=== PATIENT | male | born 1990 | race African-American/Black ===

== ENCOUNTER 2016-11-30 15:11 | Inpatient (IN) | payer OTHER ==
[~2016-11-30] VITALS: Ht 167.6 cm; Wt 57.5 kg
[2016-11-30 15:17] VITALS: BP 159/100; PULSE 66; RESP 16; TEMP 98.7; O2SAT 99
--- NOTE | 2016-11-30 15:19 | PD ---
Physical Exam Date Seen by Provider: Nov 30, 2016 Time Seen by Provider: 15:17 Narrative 26 YOBM C/O ABD PAIN WORSE RLQ. POSSIBLE APPENDICITIS. PAIN 4-5/10 VS REVIEWED WAITING FOR BED PLACEMENT MDM Supervised Visit with JANICE: No Scripts No Active Prescriptions or Reported Meds Memo Brunner Nov 30, 2016 15:19
[2016-11-30] MEDS ORDERED: SODIUM CHLOR 0.9% 1000 ML INJ 1,000 ML IV SCH (17:59)
--- NOTE | 2016-11-30 17:59 | PD ---
HPI Chief Complaint: Abdominal Pain Time Seen by Provider: 17:59 Travel History International Travel<30 days: No Contact w/Intl Traveler<30days: No Traveled to known affect area: No History of Present Illness HPI 26-year-old male with no significant medical history presents to the emergency department for evaluation a right lower abdominal pain. Patient states 2 days ago he began having abdominal cramping inferior to his umbilicus. It was cramping in nature. It has since migrated to the right lower quadrant. He states it is more painful with walking or movement. He states when he bends his knee up is very painful in the right lower quadrant. It is sharp at times. At rest 4/10. He has had mild nausea without vomiting. No bowel or bladder changes. He has felt chilled without definite fever. He has no other symptoms to report this time. [facility] Past Medical History Medical History: Denies Significant Hx Social History Alcohol Use: Yes (OCCASIONALLY) Tobacco Use: Yes (< 1 PPD) Substance Use: No Allergies-Medications (Allergen,Severity, Reaction): Coded Allergies: No Known Allergies (Verified , 11/30/16) Reported Meds & Prescriptions Reported Meds & Active Scripts Active No Active Prescriptions or Reported Medications Review of Systems Except as stated in HPI: all other systems reviewed are Neg Physical Exam Narrative GENERAL: Well-nourished male patient, ambulatory and in no acute distress. SKIN: Focused skin assessment warm/dry. HEAD: Atraumatic. Normocephalic. EYES: Pupils equal and round. No scleral icterus. No injection or drainage. ENT: No nasal bleeding or discharge. Mucous membranes pink and moist. NECK: Trachea midline. No JVD. CARDIOVASCULAR: Regular rate and rhythm. No murmur appreciated. RESPIRATORY: No accessory muscle use. Clear to auscultation. Breath sounds equal bilaterally. GASTROINTESTINAL: Abdomen soft, distended. Tenderness over McBurney's point; mild guarding with RLQ outpatient. No rebound tenderness.. Hepatic and splenic margins not palpable. MUSCULOSKELETAL: No obvious deformities. No clubbing. No cyanosis. No edema. NEUROLOGICAL: Awake and alert. No obvious cranial nerve deficits. Motor grossly within normal limits. Normal speech. PSYCHIATRIC: Appropriate mood and affect; insight and judgment normal. Data Data Last Documented VS Vital Signs Date Time Temp Pulse Resp B/P Pulse Ox O2 Delivery O2 Flow Rate FiO2 11/30/16 22:34 53 16 120/83 97 Room Air 11/30/16 15:17 98.7 Orders Urinalysis - C+S If Indicated (11/30/16 17:13) Complete Blood Count With Diff (11/30/16 17:59) Comprehensive Metabolic Panel (11/30/16 17:59) Prothrombin Time / Inr (Pt) (11/30/16 17:59) Act Partial Throm Time (Ptt) (11/30/16 17:59) Ct Abd/Pel W Iv Contrast(Rout) (11/30/16 17:59) Iv Access Insert/Monitor (11/30/16 17:59) Ecg Monitoring (11/30/16 17:59) Oximetry (11/30/16 17:59) Morphine Inj (Morphine Inj) (11/30/16 18:00) Ondansetron Inj (Zofran Inj) (11/30/16 18:00) Sodium Chlor 0.9% 1000 Ml Inj (Ns 1000 M (11/30/16 17:59) Sodium Chloride 0.9% Flush (Ns Flush) (11/30/16 18:00) Sodium Chlor 0.9% 1000 Ml Inj (Ns 1000 M (11/30/16 20:00) Iohexol 350 Inj (Omnipaque 350 Inj) (11/30/16 20:15) Piperacil-Tazo 4.5 Gm Premix (Zosyn 4.5 (11/30/16 21:45) Morphine Inj (Morphine Inj) (11/30/16 21:45) Consult General Surgery (11/30/16 ) Admit Order (Ed Use Only) (11/30/16 22:39) Labs Laboratory Tests Test 11/30/16 11/30/16 17:30 18:40 Urine Color YELLOW Urine Turbidity CLEAR Urine pH 6.0 Urine Specific [place] 1.024 Urine Protein TRACE mg/dL Urine Glucose (UA) NEG mg/dL Urine Ketones 40 mg/dL Urine Occult Blood NEG Urine Nitrite NEG Urine Bilirubin NEG Urine Urobilinogen 8.0 MG/DL Urine Leukocyte Esterase NEG Urine RBC LESS THAN 1 /hpf Urine WBC 4 /hpf Urine Squamous Epithelial <1 /hpf Cells Urine Mucus MANY /lpf Microscopic Urinalysis Comment CULT NOT INDICATED White Blood Count 13.5 TH/MM3 Red Blood Count 5.48 MIL/MM3 Hemoglobin 14.9 GM/DL Hematocrit 44.6 % Mean Corpuscular Volume 81.4 FL Mean Corpuscular Hemoglobin 27.1 PG Mean Corpuscular Hemoglobin 33.3 % Concent Red Cell Distribution Width 13.2 % Platelet Count 143 TH/MM3 Mean Platelet Volume 9.1 FL Neutrophils (%) (Auto) 85.2 % Lymphocytes (%) (Auto) 5.7 % Monocytes (%) (Auto) 9.0 % Eosinophils (%) (Auto) 0.0 % Basophils (%) (Auto) 0.1 % Neutrophils # (Auto) 11.5 TH/MM3 Lymphocytes # (Auto) 0.8 TH/MM3 Monocytes # (Auto) 1.2 TH/MM3 Eosinophils # (Auto) 0.0 TH/MM3 Basophils # (Auto) 0.0 TH/MM3 CBC Comment DIFF FINAL Differential Comment Prothrombin Time 12.0 SEC Prothromb Time International 1.1 RATIO Ratio Activated Partial 28.2 SEC Thromboplast Time Sodium Level 135 MEQ/L Potassium Level 3.3 MEQ/L Chloride Level 98 MEQ/L Carbon Dioxide Level 29.5 MEQ/L Anion Gap 8 MEQ/L Blood Urea Nitrogen 12 MG/DL Creatinine 1.17 MG/DL Estimat Glomerular Filtration 91 ML/MIN Rate Random Glucose 100 MG/DL Calcium Level 9.0 MG/DL Total Bilirubin 1.1 MG/DL Aspartate Amino Transf 7 U/L (AST/SGOT) Alanine Aminotransferase 12 U/L (ALT/SGPT) Alkaline Phosphatase 74 U/L Total Protein 7.3 GM/DL Albumin 3.7 GM/DL MDM Medical Decision Making Medical Screen Exam Complete: Yes Emergency Medical Condition: Yes Medical Record Reviewed: Yes Differential Diagnosis ACute appendicitis versus colitis versus diverticulitis versus gastroenteritis versus muscle strain versus spasm Narrative Course 26 year male presents to the Emergency department for evaluation right lower quadrant pain, initial onset 2 days ago inferior to his umbilicus that has now migrated. Patient appears without distress. His vital signs are stable. He is tender over McBurney's point. CBC is with moderate leukocytosis 13.5 with a neutrophilia of 11.5. CMP is with mild hypokalemia 3.3. Otherwise without acute concern. Urinalysis is with 40 ketones and many mucus. Culture is not indicated. CT imaging is ordered with IV and by mouth contrast. 2014 I'm contacted by CT and they have the patient in the room. I am inform the patient has not yet had his by mouth contrast and this order was placed by myself, however not initiated by the meteorological technician. Pt will have CT without PO contrast at this point. [address] Lui. Disposition will pend his judgment. Diagnosis Primary Impression: Right lower quadrant abdominal pain Scripts No Active Prescriptions or Reported Meds Condition: Stable Chandni Ross Nov 30, 2016 17:59
[2016-11-30] MEDS ORDERED: MORPHINE SULFATE 4 MG/ML INJ IV PUSH ONE ×2 (18:00→21:45)
[2016-11-30] MEDS ORDERED: SODIUM CHLORIDE 0.9% FLUSH 10 ML FLUSH IV FLUSH PRN ×2 (18:00→23:00)
[2016-11-30] MEDS ORDERED: ONDANSETRON HCL 4 MG/2 ML VIAL IVP ONE (18:00)
[2016-11-30 18:08] LABS: BLOOD, URINE NEG (NEG); COMMENT (UR) CULT NOT INDICATED; CULTURE IF INDICATED CULT NOT INDICATED; GLUCOSE,URINE NEG (NEG); KETONE, URINE 40 mg/dL (NEG); MUCUS URINE MANY /lpf (OCC); NITRITE,URINE NEG (NEG); SQUAMOUS EPITHELIAL CELL URINE <1 /hpf (0-5); URINE COLOR YELLOW (YELLW/STRAW)
[2016-11-30 18:43] VITALS: RESP 18; O2SAT 100
[2016-11-30 19:12] VITALS: BP 144/106; PULSE 54; RESP 18; O2SAT 97
[2016-11-30 19:15] LABS: AUTOMATED NEUTROPHIL # 11.5 TH/MM3 (1.8-7.7); BASOPHIL % 0.1 % (0.0-2.0); HEMATOCRIT 44.6 % (39.0-51.0); HEMO FLAGS DIFF FINAL; LYMPH % 5.7 % (9.0-44.0); LYMPHOCYTE # 0.8 TH/MM3 (1.0-4.8); MEAN CELL VOLUME 81.4 FL (80.0-100.0); MEAN CORPUSCULAR HEMOGLOBIN 27.1 PG (27.0-34.0); MEAN CORPUSCULAR HGB CONC 33.3 % (32.0-36.0); NEUT % 85.2 % (16.0-70.0); PLATELET COUNT 143 TH/MM3 (150-450); RED BLOOD COUNT 5.48 MIL/MM3 (4.50-5.90); RED CELL DISTRIBUTION WIDTH 13.2 % (11.6-17.2); WHITE BLOOD COUNT 13.5 TH/MM3 (4.0-11.0)
[2016-11-30 19:31] LABS: APTT (PATIENT) 28.2 SEC (24.3-30.1); INTERNATIONAL NORMALIZED RATIO 1.1 RATIO
[2016-11-30 19:36] LABS: ANION GAP 8 MEQ/L (5-15); AST (GOT) 7 U/L (15-37); BICARBONATE 29.5 MEQ/L (21.0-32.0); BLOOD UREA NITROGEN 12 MG/DL (7-18); CHLORIDE 98 MEQ/L (98-107); GLOMERULAR FILTRATION RATE 91 ML/MIN (>89); POTASSIUM 3.3 MEQ/L (3.5-5.1); SODIUM (NA) 135 MEQ/L (136-145)
[2016-11-30 19:40] LABS: ALKALINE PHOSPHATASE 74 U/L (45-117); ALT (GPT) 12 U/L (12-78); TOTAL BILIRUBIN ADULT 1.1 MG/DL (0.2-1.0)
[2016-11-30] MEDS ORDERED: SODIUM CHLOR 0.9% 1000 ML INJ 1,000 ML IV ONE (20:00)
[2016-11-30] MEDS ORDERED: IOHEXOL 350 MG/ML 10 ML VIAL (for RAD DIAG) IV ONE (20:15)
--- NOTE | 2016-11-30 21:27 | RADRPT ---
EXAM DATE/TIME: 11/30/2016 20:11 [place] COMPARISON: No previous studies available for comparison. INDICATIONS : Right side abdominal pain. IV CONTRAST: 100 cc Omnipaque 350 (iohexol) IV ORAL CONTRAST: No oral contrast ingested. RADIATION DOSE: 4.70 CTDIvol (mGy) MEDICAL HISTORY : None SURGICAL HISTORY : None. ENCOUNTER: Initial ACUITY: 3 days PAIN SCALE: 8/10 LOCATION: Right abdomen TECHNIQUE: Volumetric scanning of the abdomen and pelvis was performed. Using automated exposure control and ad justment of the mA and/or kV according to patient size, radiation dose was kept as low as reasonably achievable to obtain optimal diagnostic quality images. DICOM format image data is available electro nically for review and comparison. FINDINGS: Lung bases are clear. There is an inflammatory process in the right lower quadrant which is associated with mural thickenin g of the proximal right colon. I cannot definitively identify the appendix. See discussion below. Small cyst in the dome of the liver. Mild periportal edema in the liver. Spleen, adrenals and pancrea s unremarkable. Small right renal cyst. No hydronephrosis. Left kidney unremarkable. No free air. Bladder unremarkable. No acute bony findings. CONCLUSION: 1. Abdominal inflammatory or edematous changes in the right lower quadrant characterized by some flui d in the paracolic gutter and adjacent mural thickening of large bowel. It is unclear if this is a pr oximal colitis/typhlitis or appendicitis. I believe appendicitis is less likely as the appendix may b e visualized posteriorly extending off the cecal region.. No free air. There is also small amount dinora e fluid in the pelvis. Memo Stockton MD on November 30, 2016 at 21:18 Board Certified Radiologist. This report was verified electronically.
--- NOTE | 2016-11-30 21:40 | PD ---
Data Data Last Documented VS Vital Signs Date Time Temp Pulse Resp B/P Pulse Ox O2 Delivery O2 Flow Rate FiO2 11/30/16 22:34 53 16 120/83 97 Room Air 11/30/16 15:17 98.7 Orders Urinalysis - C+S If Indicated (11/30/16 17:13) Complete Blood Count With Diff (11/30/16 17:59) Comprehensive Metabolic Panel (11/30/16 17:59) Prothrombin Time / Inr (Pt) (11/30/16 17:59) Act Partial Throm Time (Ptt) (11/30/16 17:59) Ct Abd/Pel W Iv Contrast(Rout) (11/30/16 17:59) Iv Access Insert/Monitor (11/30/16 17:59) Ecg Monitoring (11/30/16 17:59) Oximetry (11/30/16 17:59) Morphine Inj (Morphine Inj) (11/30/16 18:00) Ondansetron Inj (Zofran Inj) (11/30/16 18:00) Sodium Chlor 0.9% 1000 Ml Inj (Ns 1000 M (11/30/16 17:59) Sodium Chloride 0.9% Flush (Ns Flush) (11/30/16 18:00) Sodium Chlor 0.9% 1000 Ml Inj (Ns 1000 M (11/30/16 20:00) Iohexol 350 Inj (Omnipaque 350 Inj) (11/30/16 20:15) Piperacil-Tazo 4.5 Gm Premix (Zosyn 4.5 (11/30/16 21:45) Morphine Inj (Morphine Inj) (11/30/16 21:45) Consult General Surgery (11/30/16 ) Admit Order (Ed Use Only) (11/30/16 22:39) Labs Laboratory Tests Test 11/30/16 11/30/16 17:30 18:40 Urine Color YELLOW Urine Turbidity CLEAR Urine pH 6.0 Urine Specific [place] 1.024 Urine Protein TRACE mg/dL Urine Glucose (UA) NEG mg/dL Urine Ketones 40 mg/dL Urine Occult Blood NEG Urine Nitrite NEG Urine Bilirubin NEG Urine Urobilinogen 8.0 MG/DL Urine Leukocyte Esterase NEG Urine RBC LESS THAN 1 /hpf Urine WBC 4 /hpf Urine Squamous Epithelial <1 /hpf Cells Urine Mucus MANY /lpf Microscopic Urinalysis Comment CULT NOT INDICATED White Blood Count 13.5 TH/MM3 Red Blood Count 5.48 MIL/MM3 Hemoglobin 14.9 GM/DL Hematocrit 44.6 % Mean Corpuscular Volume 81.4 FL Mean Corpuscular Hemoglobin 27.1 PG Mean Corpuscular Hemoglobin 33.3 % Concent Red Cell Distribution Width 13.2 % Platelet Count 143 TH/MM3 Mean Platelet Volume 9.1 FL Neutrophils (%) (Auto) 85.2 % Lymphocytes (%) (Auto) 5.7 % Monocytes (%) (Auto) 9.0 % Eosinophils (%) (Auto) 0.0 % Basophils (%) (Auto) 0.1 % Neutrophils # (Auto) 11.5 TH/MM3 Lymphocytes # (Auto) 0.8 TH/MM3 Monocytes # (Auto) 1.2 TH/MM3 Eosinophils # (Auto) 0.0 TH/MM3 Basophils # (Auto) 0.0 TH/MM3 CBC Comment DIFF FINAL Differential Comment Prothrombin Time 12.0 SEC Prothromb Time International 1.1 RATIO Ratio Activated Partial 28.2 SEC Thromboplast Time Sodium Level 135 MEQ/L Potassium Level 3.3 MEQ/L Chloride Level 98 MEQ/L Carbon Dioxide Level 29.5 MEQ/L Anion Gap 8 MEQ/L Blood Urea Nitrogen 12 MG/DL Creatinine 1.17 MG/DL Estimat Glomerular Filtration 91 ML/MIN Rate Random Glucose 100 MG/DL Calcium Level 9.0 MG/DL Total Bilirubin 1.1 MG/DL Aspartate Amino Transf 7 U/L (AST/SGOT) Alanine Aminotransferase 12 U/L (ALT/SGPT) Alkaline Phosphatase 74 U/L Total Protein 7.3 GM/DL Albumin 3.7 GM/DL [facility] Supervised Visit with JANICE: Yes Narrative Course I, Dr. Lui, have reviewed the advance practice practitioner's documentation and am in agreement, met with the patient face to face, made the diagnosis, and the medical decision making was done by me. See her note for further details. Briefly this a 26-year-old male who is here for evaluation of right lower quadrant abdominal pain since yesterday. Pain started periumbilical and migrated to his right lower quadrant. He has moderate to severe pain in this region that is worse with movement and palpation. He has also had subjective fevers and chills. No history of abdominal surgeries. On physical exam the patient has moderate right lower quadrant tenderness, periumbilical tenderness, and suprapubic tenderness without rebound or guarding. He does have a Rovsing sign on exam. Initial vital signs show heart rate 66, blood pressure 159/100, pulse ox 100% on room air, oral temp of 98.7F. CBC shows WBC 13.5, hemoglobin 14.9, hematocrit 44.6, platelets 143, neutrophils 85%. CMP is remarkable for potassium 3.3, otherwise unremarkable. CT abdomen pelvis: CONCLUSION: 1. Abdominal inflammatory or edematous changes in the right lower quadrant characterized by some fluid in the paracolic gutter and adjacent mural thickening of large bowel. It is unclear if this is a proximal colitis/ typhlitis or appendicitis. I believe appendicitis is less likely as the appendix may be visualized posteriorly extending off the cecal region.. No free air. There is also small amount free fluid in the pelvis. CT abd/pelvis was ordered with PO and IV contrast, however, for some reason PO contrast was not provided to the patient. Case discussed with on-call general surgeon Dr. Looney. Plan is to start the patient on IV antibiotics and admitted to the medical service. He will evaluate the patient tomorrow morning in consultation. Case discussed with [facility], hospitalist Dr. Graham. The patient will be admitted to their service under Dr. Lan 11:40 PM: I was informed by the call center that this is a [facility] patient and that I would need to speak with the [facility] general surgeon. At this time discussed that case with Dr. Gauthier who will evaluate the patient in the morning. Diagnosis Primary Impression: Right lower quadrant abdominal pain Admitting Information Admitting Physician Requests: Observation Scripts No Active Prescriptions or Reported Meds Grover Lui MD Nov 30, 2016 21:39
[2016-11-30] MEDS ORDERED: PIPERACIL-TAZO 4.5 GM PREMIX 100 ML IV ONE (21:45)
[2016-11-30 22:34] VITALS: BP 120/83; PULSE 53; RESP 16; O2SAT 97
[2016-11-30] MEDS ORDERED: SODIUM CHLOR 0.45% 1000 ML INJ 1,000 ML IV SCH (22:47)
--- NOTE | 2016-11-30 22:56 | HHI.HP ---
HPI Service CP Hospitalists Primary Care Physician No Primary Care Physician Admission Diagnosis RLQ abdominal pain r/o appenciditis Chief Complaint: abdominal pain for 2 days with chills Travel History International Travel<30 Days: No Contact w/Intl Traveler <30 Da: No Traveled to Known Affected Are: No History of Present Illness 26-year-old male with no significant medical history presents to the emergency department for evaluation a right lower abdominal pain. Patient states 2 days ago he began having abdominal cramping inferior to his umbilicus. He states his in migrated to the right lower quadrant. He states it is more painful with walking or movement. He states when he bends his knee up is very painful in the right lower quadrant. He has had mild nausea without vomiting. No bowel or bladder changes. He has felt chilled without fever. He has no other symptoms to report this time. CT in er suggests colitis inflammation possible appendix Review of Systems Constitutional: COMPLAINS OF: Chills Gastrointestinal: COMPLAINS OF: Abdominal pain, Nausea Past Family Social History Past Medical History none Past Surgical History none Reported Medications none Allergies: Coded Allergies: No Known Allergies (Verified , 11/30/16) Social History smokes 1/2 ppd occ etoh Physical Exam Vital Signs Vital Signs Date Time Temp Pulse Resp B/P Pulse Ox O2 Delivery O2 Flow Rate FiO2 11/30/16 22:34 53 16 120/83 97 Room Air 11/30/16 19:12 54 18 144/106 97 Room Air 11/30/16 18:43 18 100 Room Air 11/30/16 15:17 98.7 66 16 159/100 99 Physical Exam GENERAL: This is a well-nourished, well-developed patient, in no apparent distress. SKIN: No rashes, ecchymoses or lesions. Cool and dry. HEAD: Atraumatic. Normocephalic. No temporal or scalp tenderness. EYES: Pupils equal round and reactive. Extraocular motions intact. No scleral icterus. No injection or drainage. ENT: Nose without bleeding, purulent drainage or septal hematoma. Throat without erythema, tonsillar hypertrophy or exudate. Uvula midline. Airway patent. NECK: Trachea midline. No JVD or lymphadenopathy. Supple, nontender, no meningeal signs. CARDIOVASCULAR: Regular rate and rhythm without murmurs, gallops, or rubs. RESPIRATORY: Clear to auscultation. Breath sounds equal bilaterally. No wheezes , rales, or rhonchi. GASTROINTESTINAL: Abdomen tender rlq to mid abd no rebound MUSCULOSKELETAL: Extremities without clubbing, cyanosis, or edema. No joint tenderness, effusion, or edema noted. No calf tenderness. Negative Homans sign bilaterally. NEUROLOGICAL: Awake and alert. Cranial nerves II through XII intact. Motor and sensory grossly within normal limits. Five out of 5 muscle strength in all muscle groups. Normal speech. Laboratory Laboratory Tests Test 11/30/16 11/30/16 17:30 18:40 Urine Color YELLOW Urine Turbidity CLEAR Urine pH 6.0 Urine Specific [place] 1.024 Urine Protein TRACE Urine Glucose (UA) NEG Urine Ketones 40 Urine Occult Blood NEG Urine Nitrite NEG Urine Bilirubin NEG Urine Urobilinogen 8.0 Urine Leukocyte Esterase NEG Urine RBC LESS THAN 1 Urine WBC 4 Urine Squamous Epithelial <1 Cells Urine Mucus MANY Microscopic Urinalysis Comment CULT NOT INDICATED White Blood Count 13.5 Red Blood Count 5.48 Hemoglobin 14.9 Hematocrit 44.6 Mean Corpuscular Volume 81.4 Mean Corpuscular Hemoglobin 27.1 Mean Corpuscular Hemoglobin 33.3 Concent Red Cell Distribution Width 13.2 Platelet Count 143 Mean Platelet Volume 9.1 Neutrophils (%) (Auto) 85.2 Lymphocytes (%) (Auto) 5.7 Monocytes (%) (Auto) 9.0 Eosinophils (%) (Auto) 0.0 Basophils (%) (Auto) 0.1 Neutrophils # (Auto) 11.5 Lymphocytes # (Auto) 0.8 Monocytes # (Auto) 1.2 Eosinophils # (Auto) 0.0 Basophils # (Auto) 0.0 CBC Comment DIFF FINAL Differential Comment Prothrombin Time 12.0 Prothromb Time International 1.1 Ratio Activated Partial 28.2 Thromboplast Time Sodium Level 135 Potassium Level 3.3 Chloride Level 98 Carbon Dioxide Level 29.5 Anion Gap 8 Blood Urea Nitrogen 12 Creatinine 1.17 Estimat Glomerular Filtration 91 Rate Random Glucose 100 Calcium Level 9.0 Total Bilirubin 1.1 Aspartate Amino Transf 7 (AST/SGOT) Alanine Aminotransferase 12 (ALT/SGPT) Alkaline Phosphatase 74 Total Protein 7.3 Albumin 3.7 Result Diagram: 11/30/16 1840 11/30/16 1840 Imaging Last 24 hours Impressions Abdomen/Pelvis CT 11/30/16 2033 Signed Impressions: Service Date/Time: November 20:11 - CONCLUSION: 1. Abdominal inflammatory or edematous changes in the right lower quadrant characterized by some fluid in the paracolic gutter and adjacent mural thickening of large bowel. It is unclear if this is a proximal colitis/typhlitis or appendicitis. I believe appendicitis is less likely as the appendix may be visualized posteriorly extending off the cecal region.. No free air. There is also small amount free fluid in the pelvis. Memo Stockton MD Course in er started on zosyn iv fluids Assessment and Plan Problem List: (1) Right lower quadrant abdominal pain Status: Acute Plan: surgical evaluation start zosyn and follow up labs Assessment and Plan as above Code Status full Discussed Condition With patient Physician Certification 2 Midnight Certification Type: Admission for Inpatient Services Order for Inpatient Services The services are ordered in accordance with Medicare regulations or non- Medicare payer requirements, as applicable. In the case of services not specified as inpatient-only, they are appropriately provided as inpatient services in accordance with the 2-midnight benchmark. Estimated LOS (days): 2 2 days is the estimated time the patient will need to remain in the hospital, assuming treatment plan goals are met and no additional complications. Post-Hospital Plan: Home Chad Campoverde MD Nov 30, 2016 22:56
[2016-11-30] MEDS ORDERED: NALOXONE HCL 0.4 MG/ML AMP IV PRN (23:00)
[2016-11-30] MEDS ORDERED: LACTULOSE SYRUP 20 GM/30 ML CUP PO PRN (23:00)
[2016-11-30] MEDS ORDERED: BISACODYL 10 MG SUPP RECTAL PRN (23:00)
[2016-11-30] MEDS ORDERED: MAGNESIUM HYDROXIDE SUSP 30 ML CUP PO PRN (23:00)
[2016-11-30] MEDS ORDERED: SENNOSIDES 8.6 MG TAB PO PRN (23:00)
[2016-11-30] MEDS ORDERED: ONDANSETRON HCL 4 MG/2 ML VIAL IVP PRN (23:00)
[2016-11-30] MEDS: 1/2 NS + KCL 20 MEQ INJ 1,000 ML IV SCH (23:25)
[2016-11-30 23:27] VITALS: BP 136/73; PULSE 53; RESP 16; O2SAT 96
[2016-12-01] VITALS (7 sets, daily range): BP systolic 131–149; BP diastolic 77–86; PULSE 54–67; RESP 16–17; TEMP 96–100.4; O2SAT 97–99
--- NOTE | 2016-12-01 00:07 | MB ---
cc: LEAH LOONEY DATE OF CONSULTATION 11/30/2016 REASON FOR CONSULTATION Severe abdominal pain with abnormality in the right lower quadrant. HISTORY This is a 26-year-old gentleman who has had a 2-day history of some right lower quadrant pain. He had one episode of nausea and vomiting. He came to the emergency room. Dr. Lui called me to evaluate the patient because he has severe abdominal pain and he was very concerned on his clinical exam about acute appendicitis. The CT scan was done without contrast and there was some question if it was a appendicitis or possibly some other abnormality. PAST MEDICAL HISTORY Without any chronic medical problems. ALLERGIES He is not allergic to anything. MEDICATIONS He does not take any medications. SOCIAL HISTORY He is unemployed at this time. PHYSICAL EXAMINATION GENERAL: He is pleasant. He is lying in the position. He is able to move, however, holds his right lower quadrant. Points right at McBurney's point were he all his tenderness is. NECK: Neck is otherwise supple. CHEST: Clear. HEART: Regular rate. ABDOMEN: Thin, soft with exquisite tenderness to the right lower quadrant with rebound and guarding. Minimal tenderness to the left side but causes pain to right side with palpation. EXTREMITIES: Moves all extremities. No cyanosis or edema. NEUROLOGIC: He is alert, oriented without focal deficits. LABORATORY DATA White count 13, H&H 14 and 44. Chemistries essentially normal except for potassium at 3.3. Urinalysis clear. IMAGING STUDIES ct abd/pelvis When I reviewed it it looked like appendicitis to me. ASSESSMENT A 26-year-old -[place] gentleman with clinical signs and symptomatology of classic appendicitis. PLAN Laparoscopic appendectomy, possible open. This was explained to the patient in detail. We will notify the OR. Since it is almost midnight, we will plan account executive [employer] operative therapy. Leah Looney MD JDB/LUIS /11:27 PM /11:53 PM KAUSHAL
[2016-12-01] MEDS: MORPHINE SULFATE 4 MG/ML INJ IV PRN ×2 (00:40→04:07)
[2016-12-01] MEDS ORDERED: METOPROLOL TARTRATE 25 MG TAB PO PRN ×2 (01:00→13:45)
[2016-12-01] MEDS ORDERED: INSULIN HUMAN REGULAR 1,000 UNITS/10 ML VIAL SQ PRN ×2 (01:00→13:45)
[2016-12-01] MEDS ORDERED: SODIUM CHLORID 0.9% 500 ML IV PRN ×2 (01:00→13:45)
[2016-12-01] MEDS ORDERED: LACTATED RINGER'S 1000 ML IV PRN ×2 (01:00→13:45)
[2016-12-01] MEDS ORDERED: CHLORHEXIDINE GLUCONATE 2 % 1 PACK (2 CLOTHS) TOPICAL PRN ×2 (01:00→13:45)
[2016-12-01] MEDS ORDERED: POVIDONE IODINE 5% (ANTISEPSIS KIT) 4 APPLICATIONS EACH NARE PRN ×2 (01:00→13:45)
[2016-12-01] MEDS: PIPERACIL-TAZO 3.375 GM PREMIX 50 ML IV SCH ×4 (04:07→22:22)
[2016-12-01 07:53] LABS: AUTOMATED NEUTROPHIL # 11.8 TH/MM3 (1.8-7.7); BASOPHIL % 0.2 % (0.0-2.0); HEMATOCRIT 40.2 % (39.0-51.0); HEMO FLAGS DIFF FINAL; LYMPH % 7.1 % (9.0-44.0); MEAN CELL VOLUME 80.1 FL (80.0-100.0); MEAN CORPUSCULAR HEMOGLOBIN 27.1 PG (27.0-34.0); MEAN CORPUSCULAR HGB CONC 33.8 % (32.0-36.0); MONO % 11.3 % (0.0-8.0); NEUT % 81.4 % (16.0-70.0); PLATELET COUNT 127 TH/MM3 (150-450); RED BLOOD COUNT 5.02 MIL/MM3 (4.50-5.90); RED CELL DISTRIBUTION WIDTH 12.9 % (11.6-17.2); WHITE BLOOD COUNT 14.5 TH/MM3 (4.0-11.0)
[2016-12-01 08:22] LABS: ALKALINE PHOSPHATASE 68 U/L (45-117); ALT (GPT) 12 U/L (12-78); ANION GAP 5 MEQ/L (5-15); AST (GOT) 9 U/L (15-37); BLOOD UREA NITROGEN 10 MG/DL (7-18); CHLORIDE 104 MEQ/L (98-107); GLOMERULAR FILTRATION RATE 94 ML/MIN (>89); POTASSIUM 3.7 MEQ/L (3.5-5.1); SODIUM (NA) 137 MEQ/L (136-145); TOTAL BILIRUBIN ADULT 1.9 MG/DL (0.2-1.0)
[2016-12-01] MEDS: DOCUSATE SODIUM 50 MG/SENNA 8.6 MG TAB PO SCH ×2 (09:00→22:21)
[2016-12-01] MEDS ORDERED: PNEUMOCOCCAL POLYVALENT INJ 25 MCG/0.5 ML SYR IM ONE (09:00)
[2016-12-01] MEDS: SODIUM CHLORIDE 0.9% FLUSH 10 ML FLUSH IV FLUSH SCH ×3 (09:00→22:22)
[2016-12-01] MEDS: 1/2 NS + KCL 20 MEQ INJ 1,000 ML IV SCH (10:15)
[2016-12-01] MEDS ORDERED: ONDANSETRON HCL 4 MG/2 ML VIAL IV PUSH ONE (12:00)
[2016-12-01] MEDS ORDERED: PROPOFOL 200 MG/20 ML AMP IV ONE (12:00)
[2016-12-01] MEDS ORDERED: NEOSTIGMINE 3 MG/3 ML SYR IV ONE (12:00)
[2016-12-01] MEDS ORDERED: ACETAMINOPHEN 1000 MG/100 ML VIAL IV ONE (12:46)
[2016-12-01] MEDS ORDERED: MIDAZOLAM HCL 2 MG/2 ML VIAL ONE (12:46)
[2016-12-01] MEDS ORDERED: DEXAMETHASONE SOD PHOS 4 MG/ML VIAL ONE (12:46)
[2016-12-01] MEDS ORDERED: FAMOTIDINE 20 MG/2 ML VIAL ONE (12:46)
[2016-12-01] MEDS ORDERED: BUPIVACAINE HCL PF 0.25% 30 ML VIAL INFIL ONE (13:26)
[2016-12-01] MEDS ORDERED: MORPHINE SULFATE 8 MG/ML INJ IV PUSH PRN (14:00)
[2016-12-01] MEDS ORDERED: METOCLOPRAMIDE HCL 10 MG/2 ML VIAL IVS PRN (14:00)
[2016-12-01] MEDS ORDERED: MORPHINE SULFATE 4 MG/ML INJ IV PRN (14:00)
[2016-12-01] MEDS ORDERED: oxyCODONE/ACETAMINOPHEN 5 MG/325 MG TAB PO PRN (14:00)
[2016-12-01] MEDS ORDERED: Post-op Orders (for Pharmacy) MISC XX ONE (14:00)
[2016-12-01] MEDS: SODIUM CHLOR 0.9% 1000 ML INJ 1,000 ML IV SCH (14:00)
[2016-12-01] MEDS ORDERED: PIPERACIL-TAZO 3.375 GM PREMIX 50 ML IV SCH (14:00)
[2016-12-01] MEDS ORDERED: ONDANSETRON HCL 4 MG/2 ML VIAL IV PRN (14:00)
[2016-12-01] MEDS ORDERED: SODIUM CHLORIDE 0.9% FLUSH 10 ML FLUSH IV FLUSH PRN (14:00)
[2016-12-01] MEDS ORDERED: fentaNYL CITRATE 250 MCG/5 ML AMP ONE (14:25)
[2016-12-01] MEDS ORDERED: DO NOT ADM ANY ANTICOAGULANT DRUGS PRN (14:28)
[2016-12-02 00:55] VITALS: BP 154/90; PULSE 50; RESP 16; TEMP 98.7; O2SAT 97
[2016-12-02] MEDS: PIPERACIL-TAZO 3.375 GM PREMIX 50 ML IV SCH ×4 (04:16→21:11)
[2016-12-02] MEDS: oxyCODONE/ACETAMINOPHEN 5 MG/325 MG TAB PO PRN ×3 (04:20→22:36)
[2016-12-02 04:45] VITALS: BP 160/93; PULSE 52; RESP 16; TEMP 98.5; O2SAT 98
[2016-12-02 08:00] VITALS: BP 141/91; PULSE 48; RESP 18; TEMP 96.5; O2SAT 99
[2016-12-02 08:13] LABS: AUTOMATED NEUTROPHIL # 18.8 TH/MM3 (1.8-7.7); BASOPHIL % 0.2 % (0.0-2.0); HEMATOCRIT 40.6 % (39.0-51.0); HEMO FLAGS DIFF FINAL; LYMPH % 2.4 % (9.0-44.0); LYMPHOCYTE # 0.5 TH/MM3 (1.0-4.8); MEAN CELL VOLUME 80.1 FL (80.0-100.0); MEAN CORPUSCULAR HEMOGLOBIN 26.5 PG (27.0-34.0); MEAN CORPUSCULAR HGB CONC 33.1 % (32.0-36.0); MONO % 7.1 % (0.0-8.0); NEUT % 90.3 % (16.0-70.0); PLATELET COUNT 142 TH/MM3 (150-450); RED BLOOD COUNT 5.07 MIL/MM3 (4.50-5.90); RED CELL DISTRIBUTION WIDTH 12.7 % (11.6-17.2); WHITE BLOOD COUNT 20.8 TH/MM3 (4.0-11.0)
[2016-12-02 08:45] LABS: BICARBONATE 29.9 MEQ/L (21.0-32.0); POTASSIUM 4.2 MEQ/L (3.5-5.1)
[2016-12-02] MEDS ORDERED: PNEUMOCOCCAL POLYVALENT INJ 25 MCG/0.5 ML SYR IM ONE (09:00)
[2016-12-02] MEDS: DOCUSATE SODIUM 50 MG/SENNA 8.6 MG TAB PO SCH ×2 (09:10→21:11)
[2016-12-02] MEDS: SODIUM CHLORIDE 0.9% FLUSH 10 ML FLUSH IV FLUSH SCH ×4 (09:10→21:11)
[2016-12-02] MEDS: SODIUM CHLOR 0.9% 1000 ML INJ 1,000 ML IV SCH ×2 (09:13)
--- NOTE | 2016-12-02 09:31 | HHI.PR ---
Subjective Subjective Notes pt states pain better c/o incisional pain no N/V Objective Vitals/I&O Vital Signs Date Time Temp Pulse Resp B/P Pulse Ox O2 Delivery O2 Flow Rate FiO2 12/02/16 08:00 96.5 48 18 141/91 99 12/02/16 01:30 Room Air 12/01/16 21:50 4.00 Labs Laboratory Tests Test 12/02/16 07:46 White Blood Count 20.8 Red Blood Count 5.07 Hemoglobin 13.5 Hematocrit 40.6 Mean Corpuscular Volume 80.1 Mean Corpuscular Hemoglobin 26.5 Mean Corpuscular Hemoglobin 33.1 Concent Red Cell Distribution Width 12.7 Platelet Count 142 Mean Platelet Volume 8.9 Neutrophils (%) (Auto) 90.3 Lymphocytes (%) (Auto) 2.4 Monocytes (%) (Auto) 7.1 Eosinophils (%) (Auto) 0.0 Basophils (%) (Auto) 0.2 Neutrophils # (Auto) 18.8 Lymphocytes # (Auto) 0.5 Monocytes # (Auto) 1.5 Eosinophils # (Auto) 0.0 Basophils # (Auto) 0.0 CBC Comment DIFF FINAL Differential Comment Sodium Level 136 Potassium Level 4.2 Chloride Level 101 Carbon Dioxide Level 29.9 Anion Gap 5 Blood Urea Nitrogen 10 Creatinine 1.08 Estimat Glomerular Filtration 100 Rate Random Glucose 114 Calcium Level 8.3 Abdomen: Non-distended, Post-op tenderness Extremities: Perfused Wound Wound : Wound Location: Abdomen Appearance: Clean & Dry A/P Assessment and Plan S/P lap appy element of Colitis on Scope WBC increasing will get GI eval start full liquids oob ambulate Alessandro Gauthier MD Dec 02, 2016 09:31
[2016-12-02 12:00] VITALS: BP 135/89; PULSE 50; RESP 18; TEMP 96.4; O2SAT 99
--- NOTE | 2016-12-02 12:27 | HHI.PR ---
Subjective Remarks Pt overall feeling better today His previous abd pain that he presented with is resolved He has incisional pain from the surgery but this is stable and controlled Pt tolerating liquid diet +Flatus No BM Afebrile Objective Vitals Vital Signs Date Time Temp Pulse Resp B/P Pulse Ox O2 Delivery O2 Flow Rate FiO2 12/02/16 08:00 96.5 48 18 141/91 99 12/02/16 05:07 18 12/02/16 04:45 98.5 52 16 160/93 98 12/02/16 01:30 Room Air 12/02/16 00:55 98.7 50 16 154/90 97 12/01/16 21:50 98 Nasal Cannula 4.00 12/01/16 20:45 97.8 63 16 149/85 99 12/01/16 15:53 96.0 54 17 131/77 98 12/01/16 14:45 52 18 123/77 98 Room Air 12/01/16 14:30 58 19 128/80 100 Room Air 12/01/16 14:19 98.4 72 15 143/77 92 Nasal Cannula 4 12/01/16 12/01/16 12/02/16 15:00 23:00 07:00 Intake Total 600 ml 480 ml 240 ml Output Total 175 ml Balance 425 ml 480 ml 240 ml Intake Oral 0 ml 480 ml 240 ml Other 600 ml Output Other 175 ml # Voids 2 1 1 # Bowel Movements 0 0 Result Diagram: 12/02/16 0746 12/02/16 0746 Other Results Laboratory Tests Test 11/30/16 11/30/16 12/01/16 12/02/16 17:30 18:40 06:42 07:46 Urine Color YELLOW Urine Turbidity CLEAR Urine pH 6.0 Urine Specific [place] 1.024 Urine Protein TRACE mg/dL Urine Glucose (UA) NEG mg/dL Urine Ketones 40 mg/dL Urine Occult Blood NEG Urine Nitrite NEG Urine Bilirubin NEG Urine Urobilinogen 8.0 MG/DL Urine Leukocyte Esterase NEG Urine RBC LESS THAN 1 /hpf Urine WBC 4 /hpf Urine Squamous Epithelial <1 /hpf Cells Urine Mucus MANY /lpf Microscopic Urinalysis Comment CULT NOT INDICATED White Blood Count 13.5 TH/MM3 14.5 TH/MM3 20.8 TH/MM3 Red Blood Count 5.48 MIL/MM3 5.02 MIL/MM3 5.07 MIL/MM3 Hemoglobin 14.9 GM/DL 13.6 GM/DL 13.5 GM/DL Hematocrit 44.6 % 40.2 % 40.6 % Mean Corpuscular Volume 81.4 FL 80.1 FL 80.1 FL Mean Corpuscular Hemoglobin 27.1 PG 27.1 PG 26.5 PG Mean Corpuscular Hemoglobin 33.3 % 33.8 % 33.1 % Concent Red Cell Distribution Width 13.2 % 12.9 % 12.7 % Platelet Count 143 TH/MM3 127 TH/MM3 142 TH/MM3 Mean Platelet Volume 9.1 FL 9.5 FL 8.9 FL Neutrophils (%) (Auto) 85.2 % 81.4 % 90.3 % Lymphocytes (%) (Auto) 5.7 % 7.1 % 2.4 % Monocytes (%) (Auto) 9.0 % 11.3 % 7.1 % Eosinophils (%) (Auto) 0.0 % 0.0 % 0.0 % Basophils (%) (Auto) 0.1 % 0.2 % 0.2 % Neutrophils # (Auto) 11.5 TH/MM3 11.8 TH/MM3 18.8 TH/MM3 Lymphocytes # (Auto) 0.8 TH/MM3 1.0 TH/MM3 0.5 TH/MM3 Monocytes # (Auto) 1.2 TH/MM3 1.6 TH/MM3 1.5 TH/MM3 Eosinophils # (Auto) 0.0 TH/MM3 0.0 TH/MM3 0.0 TH/MM3 Basophils # (Auto) 0.0 TH/MM3 0.0 TH/MM3 0.0 TH/MM3 CBC Comment DIFF FINAL DIFF FINAL DIFF FINAL Differential Comment Prothrombin Time 12.0 SEC Prothromb Time International 1.1 RATIO Ratio Activated Partial 28.2 SEC Thromboplast Time Sodium Level 135 MEQ/L 137 MEQ/L 136 MEQ/L Potassium Level 3.3 MEQ/L 3.7 MEQ/L 4.2 MEQ/L Chloride Level 98 MEQ/L 104 MEQ/L 101 MEQ/L Carbon Dioxide Level 29.5 MEQ/L 28.0 MEQ/L 29.9 MEQ/L Anion Gap 8 MEQ/L 5 MEQ/L 5 MEQ/L Blood Urea Nitrogen 12 MG/DL 10 MG/DL 10 MG/DL Creatinine 1.17 MG/DL 1.14 MG/DL 1.08 MG/DL Estimat Glomerular Filtration 91 ML/MIN 94 ML/MIN 100 ML/MIN Rate Random Glucose 100 MG/DL 79 MG/DL 114 MG/DL Calcium Level 9.0 MG/DL 8.1 MG/DL 8.3 MG/DL Total Bilirubin 1.1 MG/DL 1.9 MG/DL Aspartate Amino Transf 7 U/L 9 U/L (AST/SGOT) Alanine Aminotransferase 12 U/L 12 U/L (ALT/SGPT) Alkaline Phosphatase 74 U/L 68 U/L Total Protein 7.3 GM/DL 6.3 GM/DL Albumin 3.7 GM/DL 3.1 GM/DL Imaging Last 24 hours Impressions Abdomen/Pelvis CT 11/30/16 5677 Signed Impressions: Service Date/Time: , November 30, 2016 20:11 - CONCLUSION: 1. Abdominal inflammatory or edematous changes in the right lower quadrant characterized by some fluid in the paracolic gutter and adjacent mural thickening of large bowel. It is unclear if this is a proximal colitis/typhlitis or appendicitis. I believe appendicitis is less likely as the appendix may be visualized posteriorly extending off the cecal region.. No free air. There is also small amount free fluid in the pelvis. Memo Stockton MD Objective Remarks General: NAD, AAOx3 Chest: CTA bilaterally Cardiac: Regular Abd: +BS, soft ND, incisions with steri strips in place, c/d/i Ext: No edema A/P Problem List: (1) Right lower quadrant abdominal pain Status: Acute Plan: - Pt is a 26 y/o without significant PMH who presented to the ED with RLQ abd pain x 3 days - CT Abd/pelvis (11/30) --> Abdominal inflammatory or edematous changes in the right lower quadrant characterized by some fluid in the paracolic gutter and adjacent mural thickening of large bowel. It is unclear if this is a proximal colitis/typhlitis or appendicitis. No free air. There is also small amount free fluid in the pelvis. - Pt was started on Zosyn - General Surgery consulted - Pt underwent laparoscopic appendectomy on 12/01/[address] Dominguez. Ther was reportedly an element of colitis noted during surgery and GI has been consulted. - Pts WBC count elevated today to 20.8 but pt afebrile. - Pt is planned for evaluation with colonoscopy for Sunday - Pt is still on Zosyn - Liquid diet per GS - Pain control PRN - DVT prophylaxis with Lovenox Assessment and Plan Patient examined. Assessment and plan formulated with Elisabeth Starr PA-C. I agree with the above. - case d/w Dr. Gallo (12/02/16) - continue zosyn - repeat CBC in AM - endoscopy with GI 12/04/16 Elisabeth Starr Dec 02, 2016 12:27 Maynor Lan DO Dec 02, 2016 15:29
--- NOTE | 2016-12-02 12:48 | PD.CONS ---
HPI History of Present Illness This is a very pleasant 26 year old male who presented to the ER for evaluation of abdominal pain. He reports that he started having a cramping abdominal pain in his left lower quadrant back on Sunday. This was intermittent initially, but over the next few days, became more severe, frequent and then migrated to his right lower quadrant. He reports that he vomited once on Sunday. He denies any fevers, but reports that he has been having intermittent chills. His pain became constant and more severe and therefore he came to the ER. Abdomen/ Pelvis CT (11/30/16)-----> 1. Abdominal inflammatory or edematous changes in the right lower quadrant characterized by some fluid in the paracolic gutter and adjacent mural thickening of large bowel. It is unclear if this is a proximal colitis/typhlitis or appendicitis. I believe appendicitis is less likely as the appendix may be visualized posteriorly extending off the cecal region.. No free air. There is also small amount free fluid in the pelvis. He was also noted to have leukocytosis. General surgery evaluated the patient and took him to the operating room for a laparoscopic appendectomy and was noted to have an element of colitis on scope. GI was consulted for further evaluation. He denies any prior episodes of similar type symptoms and denies any issues with diarrhea or rectal bleeding. He states prior to this episode, his appetite has been good and he has not had any significant weight loss. He denies any family history of inflammatory bowel disease. He denies any recent travel, suspicious food, antibiotic use, or sick contacts. He reports that he is feeling much better and is no longer having abdominal pain, other than mild tenderness at the incision sites. (Monique Mullins) [facility] Past Medical History Denies Past Surgical History Denies (Monique Mullins) Coded Allergies: No Known Allergies (Verified , 11/30/16) Medications Allergies Coded Allergies Type Severity Reaction Last Updated Verified No Known Allergies 11/30/16 Yes Active Scripts Medications Dose Route/Sig Days Date Category No Active Prescriptions or Reported Medications Rx Family History Maternal grandfather had prostate cancer Maternal grandmother with heart disease and htn Social History Smokes 1/2 ppd Occasional ETOH. (Monique Mullins) Review of Systems Constitutional: COMPLAINS OF: Chills, DENIES: Fever, Weight loss Respiratory: DENIES: Cough Cardiovascular: DENIES: Chest pain Gastrointestinal: COMPLAINS OF: Abdominal pain, Nausea, Vomiting, DENIES: Black stools, Bloody stools, Constipation, Diarrhea, Swelling of Abdomen, Heartburn, Hematemesis Musculoskeletal: DENIES: Joint pain Integumentary: DENIES: Abnormal pigmentation Neurologic: DENIES: Headache Psychiatric: DENIES: Confusion (Monique Mullins [facility]) GI Exam Vitals I&O Vital Signs Date Time Temp Pulse Resp B/P Pulse Ox O2 Delivery O2 Flow Rate FiO2 12/02/16 08:00 96.5 48 18 141/91 99 12/02/16 05:07 18 12/02/16 04:45 98.5 52 16 160/93 98 12/02/16 01:30 Room Air 12/02/16 00:55 98.7 50 16 154/90 97 12/01/16 21:50 98 Nasal Cannula 4.00 12/01/16 20:45 97.8 63 16 149/85 99 12/01/16 15:53 96.0 54 17 131/77 98 12/01/16 14:45 52 18 123/77 98 Room Air 12/01/16 14:30 58 19 128/80 100 Room Air 12/01/16 14:19 98.4 72 15 143/77 92 Nasal Cannula 4 I/O 12/01/16 12/01/16 12/01/16 12/02/16 12/02/16 12/02/16 07:00 15:00 23:00 07:00 15:00 23:00 Intake Total 336 ml 600 ml 480 ml 240 ml Output Total 175 ml Balance 336 ml 425 ml 480 ml 240 ml Intake Oral 0 ml 0 ml 480 ml 240 ml IV Total 336 ml Other 600 ml Output Other 175 ml # Voids 1 2 1 1 # Bowel Movements 0 0 0 Imaging Last Impressions Abdomen/Pelvis CT 11/30/16 8252 Signed Impressions: Service Date/Time: November 20:11 - CONCLUSION: 1. Abdominal inflammatory or edematous changes in the right lower quadrant characterized by some fluid in the paracolic gutter and adjacent mural thickening of large bowel. It is unclear if this is a proximal colitis/typhlitis or appendicitis. I believe appendicitis is less likely as the appendix may be visualized posteriorly extending off the cecal region.. No free air. There is also small amount free fluid in the pelvis. Memo Stockton MD Laboratory Test 12/02/16 07:46 White Blood Count 20.8 TH/MM3 Red Blood Count 5.07 MIL/MM3 Hemoglobin 13.5 GM/DL Hematocrit 40.6 % Mean Corpuscular Volume 80.1 FL Mean Corpuscular Hemoglobin 26.5 PG Mean Corpuscular Hemoglobin 33.1 % Concent Red Cell Distribution Width 12.7 % Platelet Count 142 TH/MM3 Mean Platelet Volume 8.9 FL Neutrophils (%) (Auto) 90.3 % Lymphocytes (%) (Auto) 2.4 % Monocytes (%) (Auto) 7.1 % Eosinophils (%) (Auto) 0.0 % Basophils (%) (Auto) 0.2 % Neutrophils # (Auto) 18.8 TH/MM3 Lymphocytes # (Auto) 0.5 TH/MM3 Monocytes # (Auto) 1.5 TH/MM3 Eosinophils # (Auto) 0.0 TH/MM3 Basophils # (Auto) 0.0 TH/MM3 CBC Comment DIFF FINAL Differential Comment Sodium Level 136 MEQ/L Potassium Level 4.2 MEQ/L Chloride Level 101 MEQ/L Carbon Dioxide Level 29.9 MEQ/L Anion Gap 5 MEQ/L Blood Urea Nitrogen 10 MG/DL Creatinine 1.08 MG/DL Estimat Glomerular Filtration 100 ML/MIN Rate Random Glucose 114 MG/DL Calcium Level 8.3 MG/DL Physical Examination HEENT: Normocephalic; atraumatic; no jaundice. CHEST: CTA CARDIAC: RRR ABDOMEN: Soft, nondistended, mild tenderness at incision sites; no hepatosplenomegaly; bowel sounds are present in all four quadrants. EXTREMITIES: No clubbing, cyanosis, or edema. SKIN: Normal; no rash; no jaundice. OFFICE DIRECTOR: No focal deficits; alert and oriented times three. (Monique Mullins [facility]) Assessment and Plan Plan ASSESSMENT: - Colitis noted on scope during appendectomy. Pt with new onset abdominal pain (no prior episodes). No hx of weight loss, diarrhea, rectal bleeding. Abdomen/Pelvis CT (11/30/16)-----> 1. Abdominal inflammatory or edematous changes in the right lower quadrant characterized by some fluid in the paracolic gutter and adjacent mural thickening of large bowel. It is unclear if this is a proximal colitis/typhlitis or appendicitis. I believe appendicitis is less likely as the appendix may be visualized posteriorly extending off the cecal region.. No free air. There is also small amount free fluid in the pelvis. WBC 20.8. No family hx of IBD. Will plan for colonoscopy for further evaluation. Zosyn - Acute appendicitis. S/P Laparoscopic appendectomy, POD #1. Per GS. Zosyn - Leukocytosis. Went up today, ? related to procedure. Clinically doing well and pain has resolved except mild tenderness at incisions. Zosyn PLAN: - Plan for colonoscopy on Sunday - Obtain consents - Full liquids today - Clear liquids tomorrow - Magnesium Citrate prep tomorrow - Hold lovenox after MN Sunday night - Zosyn - CBC, BMP in am - Supportive care - Further recommendations to follow based on results of above - Pt seen and examined by Dr. Bledsoe and myself and this note is written on his behalf (Monique Mullins) Physician Comments Seen and examined, discussed with GS, will plan colonoscopy sunday. Further recommendations to follow pending colonoscopy results. (Ryan Bledsoe MD) Monique Mullins Dec 02, 2016 12:48 Ryan Bledsoe MD Dec 02, 2016 14:12
[2016-12-02] MEDS: ENOXAPARIN SODIUM 30 MG/0.3 ML SYRINGE SQ SCH (13:13)
--- NOTE | 2016-12-02 13:55 | MP ---
cc: PAULINE GAUTHIER DATE OF SURGERY: 12/01/2016. PREOPERATIVE DIAGNOSIS: Appendicitis. POSTOPERATIVE DIAGNOSIS: 1. Appendicitis with pathology pending. 2. Ascending colitis. OPERATIVE PROCEDURE PERFORMED: Laparoscopic appendectomy. SURGEON: Pauline Gauthier MD. ANESTHESIA: General endotracheal anesthesia. ESTIMATED BLOOD LOSS: Scant. FINDINGS: The patient's appendix appeared distended but no excessive inflammation surrounded it. The patient had inflammation around the ascending colon. No acute signs of perforation. He had a small amount of fluid in his pelvis. It was decided to remove the appendix at the base and the cecum was without inflammation. SPECIMEN: Appendix. COMPLICATIONS: None. DESCRIPTION OF THE PROCEDURE IN DETAIL: The patient was brought to the operating room and placed on the operating room table in the supine position. Bilateral sequential inflation devices were placed on the lower extremities. General anesthesia was instituted. The abdomen was prepped and draped sterilely. The infraumbilical region was anesthetized with 0.25% Marcaine with epinephrine. A skin incision was made and a 5 mm OptiVu port placed under direct vision and pneumoperitoneum created. Under direct vision, a 5 mm suprapubic port and a 12 mm left lower quadrant port was placed. Prior to placement of all ports, the skin and peritoneum were anesthetized with 0.25% Marcaine with epinephrine. The patient was placed in Trendelenburg position with right side up. The abdominal cavity was inspected. Findings as above. The appendix was brought into view. The mesoappendix was divided with the harmonic scalpel. The appendix was mobilized to its base. It was then divided at its base using an endovascular stapler. It was removed from the peritoneal cavity in an Endopouch through the 12 mm port site. The pelvis was irrigated with saline. The operative field was inspected. The staple lines were intact. CO2 released. All ports removed. The fascia at the 12 mm port site approximated with #0 Vicryl suture. The wound was irrigated with saline. The skin edges were approximated with 4-0 Monocryl. The abdominal wall was cleaned and a sterile dressing placed. The patient was awakened and taken to the recovery room. MD JAVON Lu/ROXANA /1:59 PM /1:49 PM KAUSHAL
[2016-12-02 16:00] VITALS: BP 159/93; PULSE 55; RESP 18; TEMP 97.3; O2SAT 100
[2016-12-02 20:55] VITALS: BP 166/87; PULSE 52; RESP 17; TEMP 98.1; O2SAT 99
[2016-12-03 00:30] VITALS: BP 166/100; PULSE 50; RESP 17; TEMP 97.1; O2SAT 99
[2016-12-03] MEDS: PIPERACIL-TAZO 3.375 GM PREMIX 50 ML IV SCH ×4 (03:19→21:11)
[2016-12-03 04:17] VITALS: BP 164/95; PULSE 51; RESP 17; TEMP 98; O2SAT 98
[2016-12-03 04:18] LABS: AUTOMATED NEUTROPHIL # 12.7 TH/MM3 (1.8-7.7); BASOPHIL % 0.2 % (0.0-2.0); HEMATOCRIT 38.4 % (39.0-51.0); HEMO FLAGS DIFF FINAL; LYMPH % 7.6 % (9.0-44.0); LYMPHOCYTE # 1.1 TH/MM3 (1.0-4.8); MEAN CELL VOLUME 79.6 FL (80.0-100.0); MEAN CORPUSCULAR HEMOGLOBIN 26.6 PG (27.0-34.0); MEAN CORPUSCULAR HGB CONC 33.4 % (32.0-36.0); MONO % 7.9 % (0.0-8.0); NEUT % 84.3 % (16.0-70.0); PLATELET COUNT 134 TH/MM3 (150-450); RED BLOOD COUNT 4.82 MIL/MM3 (4.50-5.90); RED CELL DISTRIBUTION WIDTH 12.6 % (11.6-17.2); WHITE BLOOD COUNT 15.1 TH/MM3 (4.0-11.0)
[2016-12-03] MEDS: SODIUM CHLOR 0.9% 1000 ML INJ 1,000 ML IV SCH ×3 (06:00→15:43)
[2016-12-03 07:46] VITALS: BP 151/91; PULSE 59; RESP 16; TEMP 96.9; O2SAT 99
[2016-12-03] MEDS: DOCUSATE SODIUM 50 MG/SENNA 8.6 MG TAB PO SCH ×2 (08:00→21:11)
[2016-12-03] MEDS: SODIUM CHLORIDE 0.9% FLUSH 10 ML FLUSH IV FLUSH SCH ×4 (08:01→21:00)
[2016-12-03] MEDS: ENOXAPARIN SODIUM 30 MG/0.3 ML SYRINGE SQ SCH (10:00)
[2016-12-03] MEDS ORDERED: LISINOPRIL 10 MG TAB ONE (11:56)
[2016-12-03 12:00] VITALS: BP 169/94; PULSE 45; RESP 16; TEMP 96.3; O2SAT 98
[2016-12-03] MEDS ORDERED: ENALAPRILAT 1.25 MG/ML VIAL IV PUSH PRN (13:45)
--- NOTE | 2016-12-03 13:54 | HHI.PR ---
Subjective Remarks Pt comfortable. Pt tolerating clear diet without n/v. Pt denies abdominal pain. Pt had a large BM this AM. Objective Vitals Vital Signs Date Time Temp Pulse Resp B/P (MAP) Pulse Ox O2 Delivery O2 Flow Rate FiO2 12/03/16 12:00 96.3 45 16 169/94 (119) 98 12/03/16 07:46 96.9 59 16 151/91 (111) 99 12/03/16 06:48 Room Air 12/03/16 04:17 98.0 51 17 164/95 (118) 98 12/03/16 00:30 97.1 50 17 166/100 (122) 99 12/02/16 20:55 98.1 52 17 166/87 (113) 99 12/02/16 17:05 Room Air 12/02/16 16:00 97.3 55 18 159/93 (115) 100 12/02/16 14:11 21 12/03/16 12/03/16 12/04/16 15:00 23:00 07:00 Intake Total 50 ml Balance 50 ml IV Total 50 ml Result Diagram: 12/03/16 0340 12/02/16 0746 Imaging Last Impressions Abdomen/Pelvis CT 11/30/16 5219 Signed Impressions: Service Date/Time: November 20:11 - CONCLUSION: 1. Abdominal inflammatory or edematous changes in the right lower quadrant characterized by some fluid in the paracolic gutter and adjacent mural thickening of large bowel. It is unclear if this is a proximal colitis/typhlitis or appendicitis. I believe appendicitis is less likely as the appendix may be visualized posteriorly extending off the cecal region.. No free air. There is also small amount free fluid in the pelvis. Memo Stockton MD Objective Remarks General: NAD, AAOx3 Chest: CTA bilaterally Cardiac: Regular Abd: +BS, soft ND, incisions with steri strips in place, c/d/i Ext: No edema A/P Problem List: (1) Right lower quadrant abdominal pain ICD Codes: R10.31 - Right lower quadrant pain Status: Acute Plan: - comgmt with GI and General Surgery - Pt is a 26 y/o without significant PMH who presented to the ED with RLQ abd pain x 3 days - CT Abd/pelvis (11/30) --> Abdominal inflammatory or edematous changes in the right lower quadrant characterized by some fluid in the paracolic gutter and adjacent mural thickening of large bowel. It is unclear if this is a proximal colitis/typhlitis or appendicitis. No free air. There is also small amount free fluid in the pelvis. - Trip (11/30 - present) - Pt underwent laparoscopic appendectomy on 12/01/[address] Dominguez. There was reportedly an element of colitis noted during surgery and GI has been consulted. - WBC 20.8 (12/02), 15.1 (12/03) - Pt is planned for evaluation with colonoscopy for Sunday - Liquid diet per GS - Pain control PRN - DVT prophylaxis with Lovenox (2) Elevated blood pressure reading ICD Codes: R03.0 - Elevated blood-pressure reading, without diagnosis of hypertension Status: Acute Plan: - trial of lisinopril - Catapres prn/vasotec prn Maynor Lan DO Dec 03, 2016 13:54
[2016-12-03] MEDS ORDERED: cloNIDine HCL 0.2 MG TAB PO PRN (15:15)
[2016-12-03 15:49] VITALS: BP 152/89; PULSE 47; RESP 16; TEMP 97.5; O2SAT 98
[2016-12-03] MEDS ORDERED: LISINOPRIL 10 MG TAB PO SCH (16:00)
[2016-12-03] MEDS ORDERED: MAGNESIUM CITRATE SOLN 300 ML BTL PO ONE ×2 (17:00→19:00)
[2016-12-03 20:49] VITALS: BP 166/95; PULSE 48; RESP 16; TEMP 97.4; O2SAT 96
[2016-12-03] MEDS: cloNIDine HCL 0.2 MG TAB PO PRN (21:11)
[2016-12-04 00:25] VITALS: BP 152/94; PULSE 49; RESP 16; TEMP 96.4; O2SAT 99
[2016-12-04] MEDS: PIPERACIL-TAZO 3.375 GM PREMIX 50 ML IV SCH ×3 (03:55→16:00)
[2016-12-04 08:00] VITALS: BP 161/101; PULSE 45; RESP 14; TEMP 96; O2SAT 100
[2016-12-04] MEDS: DOCUSATE SODIUM 50 MG/SENNA 8.6 MG TAB PO SCH (08:28)
[2016-12-04] MEDS: SODIUM CHLORIDE 0.9% FLUSH 10 ML FLUSH IV FLUSH SCH (08:29)
[2016-12-04] MEDS ORDERED: LISINOPRIL 10 MG TAB PO SCH (09:00)
[2016-12-04] MEDS: SODIUM CHLOR 0.9% 1000 ML INJ 1,000 ML IV SCH (09:29)
--- NOTE | 2016-12-04 11:20 | HHI.PR ---
Subjective Remarks no pain today Objective Vitals heart reg lung cta abd s/nt ext no edema Vital Signs Date Time Temp Pulse Resp B/P (MAP) Pulse Ox O2 Delivery O2 Flow Rate FiO2 12/04/16 00:25 96.4 49 16 152/94 (113) 99 12/03/16 20:49 97.4 48 16 166/95 (118) 96 12/03/16 15:49 97.5 47 16 152/89 (110) 98 12/03/16 12:00 96.3 45 16 169/94 (119) 98 Result Diagram: 12/03/16 0340 12/02/16 0746 Imaging Last Impressions Abdomen/Pelvis CT 11/30/16 1759 Signed Impressions: Service Date/Time: November 20:11 - CONCLUSION: 1. Abdominal inflammatory or edematous changes in the right lower quadrant characterized by some fluid in the paracolic gutter and adjacent mural thickening of large bowel. It is unclear if this is a proximal colitis/typhlitis or appendicitis. I believe appendicitis is less likely as the appendix may be visualized posteriorly extending off the cecal region.. No free air. There is also small amount free fluid in the pelvis. Memo Stockton MD A/P Problem List: (1) Right lower quadrant abdominal pain ICD Codes: R10.31 - Right lower quadrant pain Status: Acute Plan: - comgmt with GI and General Surgery - Pt is a 26 y/o without significant PMH who presented to the ED with RLQ abd pain x 3 days - CT Abd/pelvis (11/30) --> Abdominal inflammatory or edematous changes in the right lower quadrant characterized by some fluid in the paracolic gutter and adjacent mural thickening of large bowel. It is unclear if this is a proximal colitis/typhlitis or appendicitis. No free air. There is also small amount free fluid in the pelvis. - Zosyn (11/30 - present) - Pt underwent laparoscopic appendectomy on 12/01/16. There was reportedly an element of colitis noted during surgery and GI has been consulted. - Pt is planned for evaluation with colonoscopy today d/c home later today on abx and f/u (2) Elevated blood pressure reading ICD Codes: R03.0 - Elevated blood-pressure reading, without diagnosis of hypertension Status: Acute Plan: pt on dmitry Jeff Bernabe MD Dec 04, 2016 11:20
[2016-12-04 12:00] VITALS: BP 209/118; PULSE 58; RESP 16; TEMP 96.4; O2SAT 100
[2016-12-04] MEDS ORDERED: PROPOFOL 200 MG/20 ML AMP IV ONE (12:10)
--- NOTE | 2016-12-04 12:44 | GIPROC ---
[facility] [address] [facility]. [facility], [address] COLONOSCOPY PROCEDURE REPORT EXAM DATE: 12/04/2016 PATIENT NAME: Minerva Bales MR #: [id number] BIRTHDATE: 1990 ENDOSCOPIST: Ryan Bledsoe MD ORDER #: [id number] LIMNOLOGIST: Ranjith Palma and Luis Daniel Rasmussen STATUS: inpatient INDICATIONS: The patient is a 26 yr old male here for a colonoscopy due to abdominal pain in the right lower quadrant PROCEDURE PERFORMED: Colonoscopy with biopsy MEDICATIONS: None and Per Anesthesia. PREP QUALITY: fair PREP TYPE:GoLytely ESTIMATED BLOOD LOSS: None CONSENT: The patient understands the risks and benefits of the procedure and understands that these risks include, but are not limited to: sedation, allergic reaction, infection, perforation and/or bleeding. Alternative means of evaluation and treatment include, among others: physical exam, x-rays, and/or surgical intervention. The patient elects to proceed with this endoscopic procedure. medical equipment was checked for proper function. Hand hygiene and appropriate measures for infection prevention was taken. After the risks, benefits and alternatives of the procedure were thoroughly explained, Informed consent was verified, confirmed and timeout was successfully executed by the treatment team. A digital exam revealed no abnormalities of the rectum The Pentax [id number] endoscope was introduced through the anus and advanced to the cecum, which was identified by both the appendix and ileocecal valve. The instrument was then slowly withdrawn as the colon was fully examined. COLON FINDINGS: The colonic mucosa appeared normal throughout the entire examined colon. The mucosa appeared normal, in the terminal ileum, and distal ileum. Retroflexed views revealed no abnormalities The scope was then completely withdrawn from the patient and the procedure terminated. PROCEDURE WITHDRAWAL TIME:10minutes ADVERSE EVENTS: There were no complications. IMPRESSIONS: 1. The colonic mucosa appeared normal throughout the entire examined colon 2. The mucosa appeared normal, in the terminal ileum, and distal ileum, random biopsies obtained . 3. Retroflexed views revealed no abnormalities RECOMMENDATIONS: Await biopsy results. Biopsy results will not be ready for 7-10 days. If you don't hear from us in two weeks, call our office for results. RECALL: Colonoscopy As needed Ryan Bledsoe MD eSigned: Ryan Bledsoe MD 12/04/2016 12:44 PM cc: PATIENT NAME: Santosh Balespenny Crum MR#: [id number]
[2016-12-04] MEDS ORDERED: GLYCOPYRROLATE 0.2 MG/ML VIAL ONE (13:03)
[2016-12-04] MEDS ORDERED: LISI10TA3 PO (13:15)
[2016-12-04] MEDS: cloNIDine HCL 0.2 MG TAB PO PRN (13:15)
[2016-12-04] MEDS ORDERED: AUGM875T3 PO (13:15)
--- NOTE | 2016-12-04 13:16 | HHI.DCPOC ---
Discharge Care Plan Diagnosis: (1) Appendicitis (2) Colitis (3) Elevated blood pressure reading Goals to Promote Your Health * To prevent worsening of your condition and complications * To maintain your health at the optimal level Directions to Meet Your Goals Take your medications as prescribed Follow your dietary instruction Follow activity as directed Keep your appointments as scheduled Take your immunizations and boosters as scheduled If your symptoms worsen call your PCP, if no PCP go to Urgent Care Center or Emergency Room Smoking is Dangerous to Your Health. Avoid second hand smoke Call the 24-hour hour crisis hotline for domestic abuse at Jeff Bernabe MD Dec 04, 2016 13:16
[2016-12-04] MEDS ORDERED: GLYCOPYRROLATE 0.2 MG/ML VIAL IV ONE (15:00)
[2016-12-04 16:23] VITALS: BP 139/84; PULSE 47; RESP 16; O2SAT 100
[2016-12-04 17:24] LABS: AUTOMATED NEUTROPHIL # 3.5 TH/MM3 (1.8-7.7); BASOPHIL % 0.7 % (0.0-2.0); EOSINOPHIL % 0.2 % (0.0-4.0); HEMATOCRIT 40.2 % (39.0-51.0); HEMO FLAGS DIFF FINAL; LYMPH % 21.4 % (9.0-44.0); LYMPHOCYTE # 1.2 TH/MM3 (1.0-4.8); MEAN CELL VOLUME 80.6 FL (80.0-100.0); MEAN CORPUSCULAR HGB CONC 33.5 % (32.0-36.0); MONO % 12.6 % (0.0-8.0); NEUT % 65.1 % (16.0-70.0); PLATELET COUNT 162 TH/MM3 (150-450); RED BLOOD COUNT 4.98 MIL/MM3 (4.50-5.90); RED CELL DISTRIBUTION WIDTH 12.6 % (11.6-17.2); WHITE BLOOD COUNT 5.4 TH/MM3 (4.0-11.0)
--- NOTE | 2016-12-08 16:16 | HHI.DS ---
Discharge Summary Admission Date Nov 30, 2016 at 22:49 Discharge Date: Dec 04, 2016 Admitting Diagnosis RLQ abdominal pain r/o appenciditis (1) Appendicitis ICD Codes: K37 - Unspecified appendicitis (2) Colitis Diagnosis: Principal ICD Codes: K52.9 - Noninfective gastroenteritis and colitis, unspecified (3) Elevated blood pressure reading ICD Codes: R03.0 - Elevated blood-pressure reading, without diagnosis of hypertension Status: Acute Brief History 26-year-old male with no significant medical history presents to the emergency department for evaluation a right lower abdominal pain. Patient states 2 days ago he began having abdominal cramping inferior to his umbilicus. He states his in migrated to the right lower quadrant. He states it is more painful with walking or movement. He states when he bends his knee up is very painful in the right lower quadrant. He has had mild nausea without vomiting. No bowel or bladder changes. He has felt chilled without fever. He has no other symptoms to report this time. CT in er suggests colitis inflammation possible appendix CBC/BMP: 12/04/16 1634 Hospital Course (1) Right lower quadrant abdominal pain - comgmt with GI and General Surgery - Pt is a 26 y/o without significant PMH who presented to the ED with RLQ abd pain x 3 days - CT Abd/pelvis (11/30) --> Abdominal inflammatory or edematous changes in the right lower quadrant characterized by some fluid in the paracolic gutter and adjacent mural thickening of large bowel. It is unclear if this is a proximal colitis/typhlitis or appendicitis. No free air. There is also small amount free fluid in the pelvis. - Trip (11/30 - present) - Pt underwent laparoscopic appendectomy on 12/01/16. There was reportedly an element of colitis noted during surgery and GI has been consulted. - Pt had unremarkable colonoscopy on day of d/c -d/c home on abx and f/u gen surg. -He was prescribed lisinipril for elevated bp and will f/u with pcp. Pt Condition on Discharge: Good Discharge Disposition: Discharge Home Discharge Instructions DIET: Follow Instructions for: As Tolerated, No Restrictions Activities you can perform: Regular-No Restrictions Follow up Referrals: Gastroenterology - 2 Weeks @ [facility] PCP Follow-up - 1 Week Surgical - 2 Weeks with Alessandro Gauthier MD New Medications: Amoxicillin-Clavulanate (Augmentin) 875-125 Mg Tab 1 TAB PO BID for Infection for 7 Days, TAB 0 Refills Lisinopril (Lisinopril) 10 Mg Tab 10 MG PO DAILY for Blood Pressure Management, #30 TAB Jeff Bernabe MD Dec 08, 2016 16:15
== END 2016-12-04 18:05 | disposition home or self-care (01) | DRG 343 ==
LOC: NEPD 15:11 → NEDA 22:41 → OBSVTOIN 22:49 → N06B 12-01 00:06
PROVIDERS: ADMIT Hospitalist; ATTEND Hospitalist
PROC: 0DTJ4ZZ Resection of Appendix, Percutaneous Endoscopic Approach (ICD-10-PCS; 2016-12-01)
PROC: 0DBB8ZX Excision of Ileum, Via Natural or Artificial Opening Endoscopic, Diagnostic (ICD-10-PCS; principal; 2016-12-04 12:00)
DX: K35.80 Unspecified acute appendicitis (principal); E87.6 Hypokalemia; F17.210 Nicotine dependence, cigarettes, uncomplicated; R03.0 Elevated blood-pressure reading, without diagnosis of hypertension; K52.9 Noninfective gastroenteritis and colitis, unspecified
CPT/HCPCS: 74177; 80048; 80053; 81001; 85025; 85610; 85730; 88304; 88305; 94150; 96361; 96365; 96375; J0131; J1100; J1650; J2250; J2270; J2405; J2543; J2710; J3010; J7030; Q9967